=== PATIENT | female | born 1995 | race American Indian/Alaskan Native ===

== ENCOUNTER 2018-05-24 17:37 | Emergency (ER) | payer SELFPAY ==
[2018-05-24 17:43] VITALS: BMI 24.7
[2018-05-24 17:44] VITALS: O2SAT 98
--- NOTE | 2018-05-24 18:01 | ED PDOC ---
Arrival/HPI - General Chief Complaint: Female Genitourinary Time Seen by Provider: 05/24/18 17:38 Historian: Patient - History of Present Illness Narrative History of Present Illness (Text): 05/24/18 18:01 A 23 y/o F w/ no significant pmhx presents to the emergency department complaining of vaginal discomfort since 1 week ago. Patient reports when she urinated 1 week ago she noticed her urine was cloudy and white which raised her concern for a possible STD. Patient states she is having unprotected sex with a new partner and came to the ER for evaluation. Patient denies any fever, chills, diarrhea, nausea, vomiting, dysuria, hematuria, headache, dizziness, or any other complaints. No PMD Time/Duration: 1 week Symptom Onset: Gradual Symptom Course: Unchanged Activities at Onset: Light Context: Home Past Medical History - Provider Review Nursing Documentation Reviewed: Yes - Infectious Disease Hx of Infectious Diseases: None - Psychiatric Hx Substance Use: Yes (Marijuana) Family/Social History - Physician Review Nursing Documentation Reviewed: Yes Family/Social History: No Known Family HX Smoking Status: Light Smoker < 10 Cigarettes Daily Hx Alcohol Use: No Hx Substance Use: Yes (Marijuana) Allergies/Home Meds Allergies/Adverse Reactions: Allergies No Known Allergies Allergy (Unverified 05/24/18 17:57) Review of Systems - Physician Review All systems were reviewed & negative as marked: Yes - Review of Systems Constitutional: absent: Fevers, Other (chills) Gastrointestinal: absent: Diarrhea, Nausea, Vomiting Genitourinary Female: Urine Output Changes (cloudy white urine) Neurological: absent: Headache, Dizziness Physical Exam Vital Signs Reviewed: Yes Vital Signs Temp Pulse Resp BP Pulse Ox 05/24/18 17:43 99.4 F 87 18 118/73 98 Temperature: Afebrile Blood Pressure: Normal Pulse: Regular Respiratory Rate: Normal Appearance: Positive for: Well-Appearing, Non-Toxic Pain Distress: None Mental Status: Positive for: Alert and Oriented X 3 Medical Decision Making ED Course and Treatment: 05/24/18 18:03 Impression: A 23 y/o F presents to the emergency department complaining of vaginal discomfort. Differential Diagnosis included but are not limited to: -- STI -- UTI Plan: -- Chlamydia/GC RNA, TMA -- Urine culture -- Urinalysis -- Reassess and disposition Progress Notes: - Scribe Statement The provider has reviewed the documentation as recorded by the Scribe Sharon Golden All medical record entries made by the Scribe were at my direction and personally dictated by me. I have reviewed the chart and agree that the record accurately reflects my personal performance of the history, physical exam, medical decision making, and the department course for this patient. I have also personally directed, reviewed, and agree with the discharge instructions and disposition. Disposition/Present on Arrival - Present on Arrival Any Indicators Present on Arrival: No History of DVT/PE: No History of Uncontrolled Diabetes: No Urinary Catheter: No History of Decub. Ulcer: No History Surgical Site Infection Following: None - Disposition Have Diagnosis and Disposition been Completed?: Yes Diagnosis: Encounter for assessment of STD exposure, Vulvovaginal candidiasis Disposition: HOME/ ROUTINE Disposition Time: 18:59 Patient Plan: Discharge Patient Problems: Current Active Problems Problem Status Onset Encounter for assessment of STD exposure Acute Vulvovaginal candidiasis Acute Condition: STABLE Discharge Instructions (ExitCare): Chlamydia (DC), Trichomoniasis Print Language: [id number] Additional Instructions: All medical record entries made by the Scribe were at my direction and personally dictated by me. I have reviewed the chart and agree that the record accurately reflects my personal performance of the history, physical exam, medical decision making, and the department course for this patient. I have also personally directed, reviewed, and agree with the discharge instructions and disposition. Please follow up in clinic in 3-5 days Please monitor for continued discharge, pelvic pain, fevers, chills or burning sensation while urinating Referrals: Skylar Michel MD [Medical Doctor] - Follow up with primary [facility] [Outside] - Follow up with primary Forms: [employer] (Frisian), WORK NOTE
[2018-05-24] MEDS ORDERED: cefTRIAXone (Rocephin) 250 mg Inj IM STA (18:41)
[2018-05-24 18:55] LABS: URINE BILIRUBIN NEGATIVE (NEGATIVE); URINE BLOOD NEGATIVE (NEGATIVE); URINE GLUCOSE (UA) NEGATIVE (NEGATIVE); URINE LEUKOCYTE ESTERASE NEGATIVE Leu/uL (NEGATIVE); URINE PROTEIN NEGATIVE mg/dL (<30 mg/dL); URINE UROBILINOGEN 0.2 E.U./dL (<1 E.U./dL)
[2018-05-24 18:56] LABS: URINE APPEARANCE CLEAR (CLEAR); URINE COLOR LIGHT YELLOW (YELLOW)
[2018-05-24 19:23] VITALS: BP 121/76; PULSE 78; RESP 16; TEMP 98.7
== END 2018-05-24 19:22 | disposition home or self-care (01) ==
LOC: ED 17:37
DX: Z20.2 Contact with and (suspected) exposure to infections with a predominantly sexual mode of transmission (principal); B37.3 Candidiasis of vulva and vagina
CPT/HCPCS: 81003; 81025; 87086; 87491; 87591; 96372; 99285; J0696